=== PATIENT | female | born 1990 | race Caucasian/White ===

== ENCOUNTER 2016-12-08 21:18 | Emergency (ER) | payer OTHER ==
[2016-12-08] MEDS ORDERED: IBUPROFEN 600 MG TAB PO ONE ×2 (22:10→22:21)
[2016-12-08] MEDS ORDERED: PENICILLIN VK 500 MG TAB PO ONE (22:50)
--- NOTE | 2016-12-08 22:54 | EDPHY ---
H & P Time Seen by Provider: 12/08/16 21:35 HPI/ROS: CHIEF COMPLAINT: Toothache HISTORY OF PRESENT ILLNESS: 26-year-old female presents emergency department complaining of a toothache that started today. Patient had a root canal on this tooth a few years ago. Patient reports she has been told she needs to have this redone as there is infection seen on x-ray. Patient had her teeth cleaned yesterday and noticed that this tooth was mildly sensitive, today her pain has increased. Patient has been taking 400 mg of ibuprofen every 6 hours with minimal relief. She took 1 Percocet that she had left over from her wisdom tooth extraction a few months ago. This helped mildly. She denies fevers or chills, no facial swelling, no difficulty swallowing, no difficulty breathing. REVIEW OF SYSTEMS: A comprehensive 10 point review of systems is otherwise negative aside from elements mentioned in the history of present illness. Smoking Status: Never smoked Physical Exam: GEN: Awake, alert, oriented, no acute distress RESP: nl resp effort HEENT: opens and closes mouth without difficulty, no trismus, no gum erythema or swelling, no dental abscess, tenderness to palpation over front top right canine. Uvula midline, no tongue swelling. MSK: normal appearing SKIN: no rash Constitutional: Initial Vital Signs Temperature (C) 36.5 C 12/08/16 21:30 Heart Rate 55 L 12/08/16 21:30 Respiratory Rate 14 12/08/16 21:30 Blood Pressure 123/82 H 12/08/16 21:30 O2 Sat (%) 99 12/08/16 21:30 O2 Delivery Mode Room Air Allergies/Adverse Reactions: No Known Allergies Allergy (Unverified 12/08/16 21:30) Home Medications: Medication Instructions Recorded Ondansetron Odt [Zofran Odt] 4 mg PO Q6-8PRN PRN #8 tab 12/08/16 Penicillin V Potassium [Pen Vk] 500 mg PO Q6 #40 tab 12/08/16 Percocet 5-325 mg Tablet 12/08/16 oxyCODONE/APAP 5/325 [Percocet 1 - 2 tab PO Q6H PRN #12 tab 12/08/16 5/325] MDM/Departure - MDM Medications Given: Discontinued Medications Ibuprofen (Motrin) 600 mg PO EDNOW ONE Stop: 12/08/16 22:22 Last Admin: 12/08/16 22:21 Dose: 600 mg - Depart Disposition: Home, Routine, Self-Care Clinical Impression: Toothache Condition: Good Instructions: Toothache (ED) Additional Instructions: Take 600 mg of ibuprofen every 8 hours with food for 3-5 days for pain. Take 1-2 Percocet every 4-6 hours as needed for severe pain. Take 500 mg of penicillin 4 times daily for 10 days. Take zofran every 8 hours as needed for nausea. Warm compresses to your face 5 times per day for 5 minutes. Follow up with your dentist at first available appointment. Return to the emergency department for facial swelling, fevers, worsening symptoms or concerns. Prescriptions: Ondansetron Odt [Zofran Odt] 4 mg PO Q6-8PRN PRN #8 tab PRN Reason: Nausea/Vomiting, Can'T Take Po oxyCODONE/APAP 5/325 [Percocet 5/325] 1 - 2 tab PO Q6H PRN #12 tab PRN Reason: Pain, Severe Penicillin V Potassium [Pen Vk] 500 mg PO Q6 #40 tab Referrals: NONE *PRIMARY CARE P,. [Primary Care Provider] - As per Instructions
[2016-12-08] MEDS ORDERED: PENICILLIN VK 250 MG TAB ONE (23:00)
[2016-12-08 23:16] VITALS: BP 121/76; PULSE 50; RESP 16; TEMP 97.9; O2SAT 96
== END 2016-12-08 23:16 | disposition home or self-care (01) ==
DX: K08.89 Other specified disorders of teeth and supporting structures (principal)

== ENCOUNTER 2017-09-10 21:16 | Emergency (ER) | payer BC, OTHER ==
--- NOTE | 2017-09-10 22:56 | EDPHY ---
H & P Stated Complaint: SEEING LINE COLORS/VISION PROBLEMS L EYE Time Seen by Provider: 09/10/17 22:32 HPI/ROS: HPI The patient presents with visual disturbance involving her left eye which occurred at dinnertime tonight and is now mostly resolved. She initially noticed a C-shaped structure in her left lateral visual field which started slowly and got progressively worse. It was a brightly colored and jagged. She could see out of her right eye perfectly. It was not associated with headache. It lasted for several hours and while she was here she began to improve. She has been looking up her symptoms online and is concerned that she is having an ocular migraine. Two days ago she had a severe headache, had to rest in bed for several hours. This was by temporal, throbbing in nature, is associated with nausea. She also has a history of retro-orbital headaches. Her mother has a history of headaches as well.. REVIEW OF SYSTEMS Constitutional: No fever, no chills. Eyes: No discharge. ENT: No sore throat. Cardiovascular: No chest pain, no palpitations. Respiratory: No cough, no shortness of breath. Gastrointestinal: No abdominal pain, no vomiting. Genitourinary: No hematuria. Musculoskeletal: No back pain. Skin: No rashes. Neurological: Positive for headache. PMHx: Healthy, some trouble with insomnia Soc Hx: Grad student PHYSICAL General Appearance: Alert, no distress Eyes: Pupils equal and round no pallor or injection ENT, Mouth: Mucous membranes moist Respiratory: There are no retractions, lungs are clear to auscultation Cardiovascular: Regular rate and rhythm Gastrointestinal: Abdomen is soft and non-tender, no masses, bowel sounds normal Neurological: A&O, cranial nerves 2-12 intact, visual sarmiento are full, peripheral vision is normal, 5/5 strength in upper and lower extremities , normal finger to nose testing Skin: Warm and dry, no rashes Musculoskeletal: Neck is supple non tender Extremities: symmetrical, full range of motion Psychiatric: Patient is oriented X 3, there is no agitation Source: Patient Exam Limitations: No limitations - Personal History LMP (Females 10-55): 8-14 Days Ago Current Tetanus Diphtheria and Acellular Pertussis (TDAP): Yes - Medical/Surgical History Hx Asthma: No Hx Chronic Respiratory Disease: No Hx Diabetes: No Hx Cardiac Disease: No Hx Renal Disease: No Hx Cirrhosis: No Hx Alcoholism: No Hx HIV/AIDS: No Hx Splenectomy or Spleen Trauma: No Other PMH: wisdom teeth extraction - Social History Smoking Status: Never smoked Constitutional: Initial Vital Signs Temperature (C) 37.0 C 09/10/17 21:38 Heart Rate 71 09/10/17 21:38 Respiratory Rate 16 09/10/17 21:38 Blood Pressure 119/89 H 09/10/17 21:38 O2 Sat (%) 97 09/10/17 21:38 O2 Delivery Mode Room Air Allergies/Adverse Reactions: No Known Allergies Allergy (Verified 09/10/17 21:37) Home Medications: Medication Instructions Recorded NK [No Known Home Meds] 09/10/17 Medical Decision Making Differential Diagnosis: This is a 27-year-old female who presents from home with visual disturbance, now resolved, in setting of headache 2 days ago. On exam, she has a normal neurologic evaluation. Her symptoms are almost completely resolved. I have considered TIA, retinal detachment, ocular migraine. Based on her symptoms, I feel ocular migraine is most likely and I have discussed this with her at length. I recommended ibuprofen or Excedrin migraine to treat her symptoms for now. I will give her follow-up with a neurologist. Departure - Departure Disposition: Home, Routine, Self-Care Clinical Impression: Ocular migraine Condition: Good Instructions: Ocular Migraine (ED) Additional Instructions: Your symptoms today seem to be caused by an ocular migraine. If you have headache symptoms again, I recommend you take ibuprofen 400 mg or Excedrin migraine as needed. I have given you information for the neurologist below in you can follow up if you have any ongoing symptoms. Referrals: Yefri Zuniga MD [Medical Doctor] - As per Instructions
[2017-09-10 23:15] VITALS: BP 130/65; PULSE 62; RESP 18; TEMP 97.7; O2SAT 98
== END 2017-09-10 23:34 | disposition home or self-care (01) ==
DX: G43.809 Other migraine, not intractable, without status migrainosus (principal)

== ENCOUNTER → 2018-11-06 | Outpatient (CLI) | payer BC | LOC: FIMAGING 14:55 ==